=== PATIENT | female | born 1965 | race Caucasian/White ===

== ENCOUNTER → 2019-10-26 08:53 | Outpatient (CLI) | payer BC, SELFPAY ==
[2019-10-26 10:32] LABS: Hematocrit 40.8 % (37-47); Hemoglobin 12.9 g/dL (12.0-15.0); Mean Corp Hgb Conc 31.6 g/dL (32-36); Mean Corpuscular Hgb 27.8 pg (27.0-32.0); Mean Corpuscular Volume 87.9 fL (81-99); Mean Platelet Vol. 8.8 fl (6.2-12.0); Platelet Count 409 K/mm3 (150-450); RBC Distribution Width CV 12.7 % (11.6-14.6); RBC Distribution Width SD 40.9 fl (35.1-43.9); Red Blood Count 4.64 M/mm3 (4.2-5.4); White Blood Count 5.7 K/mm3 (4.4-11.0)
[2019-10-26 10:44] LABS: Erythrocyte Sedimentation Rate 32 mm/hr (0-30)
[2019-10-26 10:52] LABS: ALB/GLOB Ratio 0.8 RATIO (0.9-2.4); AST(SGOT) 28 U/L (15-37); Alanine Aminotransfer ALT/SGPT 30 U/L (13-56); Albumin, Serum 3.7 g/dL (3.2-5.0); Alkaline Phosphatase 64 U/L (45-117); Anion Gap 7 (5-15); BUN 13 mg/dL (7-18); BUN/Creat Ratio 13.3 RATIO (10-20); Calcium,Total 9.1 mg/dL (8.5-10.1); Chloride 100 mmol/L (98-107); Cholesterol 201 mg/dL (200); Creatinine, Serum 0.97 mg/dL (0.55-1.02); EST Glomerular Filtration Rate 63 mL/min (>60); Est Glom Filt Rate - Afr Amer 77 mL/min (>60); Globulin 4.8 g/dL (2.2-4.2); Glucose 108 mg/dL (74-106); High Density Lipoprotein 50 mg/dL; Magnesium 2.2 mg/dL (1.6-2.6); Potassium 3.5 mmol/L (3.5-5.1); Protein, Total 8.5 g/dL (6.4-8.2); Sodium Level 137 mmol/L (136-145); Triglycerides 196 mg/dL; Very Low Density Lipoprotein 39 mg/dL (5-40)
[2019-10-27 09:39] LABS: SAR-COV-2 IGG ANTIBODY Negative (Negative)
== END ==
PROVIDERS: PCP Family Medicine; Referring Provider Family Medicine; Visit Provider Family Medicine
DX: I10 Essential (primary) hypertension (principal); M43.6 Torticollis; Z20.828 Contact with and (suspected) exposure to other viral communicable diseases
CPT/HCPCS: 36415; 80053; 80061; 83735; 84443; 85027; 85652; 86769; G2023

== ENCOUNTER → 2020-02-08 16:17 | Outpatient (CLI) | payer BC, SELFPAY ==
[2020-02-08 17:51] LABS: Anion Gap 8 (5-15); BUN 14 mg/dL (7-18); BUN/Creat Ratio 15.1 RATIO (10-20); Calcium,Total 9.1 mg/dL (8.5-10.1); Chloride 101 mmol/L (98-107); Creatinine, Serum 0.93 mg/dL (0.55-1.02); EST Glomerular Filtration Rate 67 mL/min (>60); Est Glom Filt Rate - Afr Amer 81 mL/min (>60); Glucose 95 mg/dL (74-106); Potassium 3.6 mmol/L (3.5-5.1); Sodium Level 138 mmol/L (136-145)
== END ==
PROVIDERS: PCP Family Medicine; Referring Provider Family Medicine; Visit Provider Family Medicine
DX: I10 Essential (primary) hypertension (principal)
CPT/HCPCS: 36415; 80048

== ENCOUNTER → 2020-12-01 12:25 | Outpatient (CLI) | payer BC, SELFPAY ==
--- NOTE | 2020-12-01 12:40 | MRI_ITS ---
STUDY: MRI BRAIN WITHOUT CONTRAST REASON FOR EXAM: Female, 55 years old. RT ASYMMETRIC HEARING LOSS -- patient refused contrast TECHNIQUE: Standardized multiplanar fat and water weighted pulse sequences were obtained. COMPARISON: None. FINDINGS: Normal size of the ventricles and extra-axial spaces for the patient''s age. Normal white matter tracts of the supratentorial brain. There is no evidence for recent intracranial ischemia or other cause of cytotoxic edema on diffusion weighted imaging (DWI). Thin section axial and coronal images through the internal auditory canals demonstrate no evidence of mass to suggest vestibular schwannoma (acoustic neuroma). Normal bilateral basal ganglia. Normal thalami. There is no extra-axial fluid accumulation. Normal flow voids within the major intracranial circulation suggesting patency by spin echo criteria. Normal sella turcica, pituitary gland, infundibular stalk, optic chiasm and hypothalamus. Normal tectal plate and pineal gland. Normal midbrain, magno and medulla. Normal cerebellum. Normal basal cisterns. Normal bilateral temporal bones. Normal bilateral internal auditory canals. No demonstrated orbital abnormality, within the constraints of a routine brain study. Normal visualized paranasal sinuses. Normal calvarium and skull base. Normal visualized soft tissue structures. Normal visualized upper cervical spine. MRI/Brain without Contrast IMPRESSION: Normal unenhanced MRI of the brain. Electronically Signed: Sean Rice MD at 9:10 EDT Tel , Service support ,
== END ==
PROVIDERS: PCP Family Medicine; Referring Provider Otolaryngology; Visit Provider Otolaryngology
DX: H90.3 Sensorineural hearing loss, bilateral (principal)
CPT/HCPCS: 70551

== ENCOUNTER 2021-09-10 09:57 | Outpatient (CLI) | payer BC, SELFPAY ==
[2021-09-10 12:36] LABS: Anion Gap 6 (5-15); BUN 21 mg/dL (7-18); BUN/Creat Ratio 22.4 RATIO (10-20); Chloride 105 mmol/L (98-107); Cholesterol 170 mg/dL (200); Creatinine, Serum 0.94 mg/dL (0.55-1.02); EST Glomerular Filtration Rate 66 mL/min (>60); Est Glom Filt Rate - Afr Amer 80 mL/min (>60); Glucose 92 mg/dL (74-106); High Density Lipoprotein 56 mg/dL; Sodium Level 138 mmol/L (136-145); Triglycerides 149 mg/dL; Very Low Density Lipoprotein 30 mg/dL (5-40)
[2021-09-10 12:41] LABS: Microalbumin:Creatinine Ratio 13.5 mg/g CRE (<30 mg/g CRE)
== END 2021-09-10 23:59 | disposition home or self-care (01) ==
LOC: MFPLAB 09:58
PROVIDERS: PCP Family Medicine; Visit Provider Family Medicine
DX: I10 Essential (primary) hypertension (principal)
CPT/HCPCS: 36415; 80048; 80061; 82043; 82570

== ENCOUNTER → 2022-01-23 | Outpatient (CLI) | payer BC, SELFPAY ==
[2022-02-03 15:56] LABS: HPV APTIMA, High Risk Negative (Negative); HPV Reflexed? NOT INDICATED
== END | disposition home or self-care (01) ==
LOC: WOBLAB 16:00
PROVIDERS: PCP Family Medicine; Visit Provider Nurse Practitioner Family
DX: Z12.4 Encounter for screening for malignant neoplasm of cervix (principal)
CPT/HCPCS: 88175; G0145

== ENCOUNTER → 2022-10-14 | Outpatient (CLI) | payer BC, SELFPAY ==
--- NOTE | 2022-10-14 15:15 | US_ITS ---
ACR Level 3 findings have been noted. An addendum which confirms receipt of the report will follow. INDICATION: post menopausal bleeding EXAMINATION: Ultrasound US Pelvis Non OB Complete With Transvaginal Imaging TECHNIQUE: Transabdominal and transvaginal pelvic ultrasound was performed. Grayscale and color flow Doppler evaluation of the adnexa. COMPARISON: None. FINDINGS: UTERUS: Anteverted. The uterus measures 8.4 x 5.4 x 3.8 cm. There is no uterine mass. The endometrial stripe measures 7 mm with heterogeneous bolus appearance at the uterine fundus, abruptly narrowing to 5 mm at the mid body level. Multiple anechoic cervical nabothian cysts. RIGHT OVARY: 2.9 x 1.6 x 1.6 cm on transabdominal exam only, with 1.9 cm unilocular anechoic cyst.. LEFT OVARY: Not seen on transabdominal or endovaginal exam. FREE FLUID: None. OTHER: Bladder is anechoic without wall thickening or internal debris. Prevoid volume 361 ml. US/Pelvic w/ Transvaginal IMPRESSION: Abnormal morphology of the 7 mm endometrial stripe at the uterine fundus. In a postmenopausal female with bleeding would include endometrial carcinoma or hyperplasia in the differential in addition to polyp and submucosal fibroid. Consider endometrial tissue sampling for histopathologic diagnosis. Right ovary 1.9 cm simple appearing cyst. In a postmenopausal female 1 year ultrasound follow-up is recommended. Study limited by nonvisualization of the left ovary on transabdominal and endovaginal exam. Electronically Signed: Andrzej Arechiga MD at 10:44 EDT ,
== END | disposition home or self-care (01) ==
PROVIDERS: PCP Family Medicine; Referring Provider Family Medicine; Visit Provider Family Medicine
DX: N93.9 Abnormal uterine and vaginal bleeding, unspecified (principal)
CPT/HCPCS: 76830; 76856

== ENCOUNTER → 2022-11-01 | Outpatient (CLI) | payer BC, SELFPAY ==
--- NOTE | 2022-11-01 | EMB_PTH ---
PATIENT: MANJINDER MORA LOC: [facility] U#:[id number] AGE/SX: 57/F ROOM: RE11/01/[address]: Antoinette Vazquez CNM : 1965 BED: DIS: 11/01/2022 SPEC #: [id number] RECD: 11/01/22 15:00 STATUS: FRANCIS REIrais #: [id number] BRISA: 11/01/22 00:[address]: Antoinette Vazquez DEPT: SURGICAL PATHOLOGY RECD BY: Karie Taylor ENTERED: 11/04/22 05:38 SP TYPE: ENDOM BX/C STEFANO DR: Dr. Virgilio Garcia MD Tissues: Endometrium, NOS Procedures: Surgery Specimen Level IV HEADER OPERATION: Endometrial biopsy PRE-OP DIAGNOSIS: Abnormal uterine bleeding TISSUE SUBMITTED: Endometrial lining MICROSCOPIC DIAGNOSIS Endometrial biopsy: Scant fragments of benign superficial endometrial tissue, benign endocervical epithelium and mucous. See comment. SJ:aliyah 11/04/2022 COMMENT Minimal specimen is submitted. Clinical correlation and appropriate follow up are necessary. MICROSCOPIC DESCRIPTION Slides are reviewed. GROSS DESCRIPTION Received is one container labeled with the patient's name and not further designated. The specimen consists of multiple irregular fragments of mucoid tissue that in aggregate measure 1.5 x 0.2 x <0.1 cm. The specimen is totally submitted in one cassette. / JESÚS:aliyah 11/01/2022 TC:4 CPT: 72691
== END | disposition home or self-care (01) ==
LOC: LABSPEC 14:04
PROVIDERS: PCP Family Medicine; Visit Provider Registered Nurse
DX: N93.9 Abnormal uterine and vaginal bleeding, unspecified (principal)
CPT/HCPCS: 88305

== ENCOUNTER → 2023-05-07 | Outpatient (CLI) | payer OTHER, SELFPAY ==
[2023-05-07 17:43] LABS: Bacteria 0 SEEN /hpf (None Seen); Mucous, Urine 0 SEEN /hpf (<or=2+); Squamous Epithelial Cells - UA 0 SEEN /hpf (5-10)
[2023-05-07 17:47] LABS: Color, Urine Yellow (Yellow); Glucose, Dipstick Normal (Normal); Ketone-Dipstick Negative (Negative); Leukocyte Esterase-Dipstick 500 /ul (Negative); Nitrite-Dipstick Negative (Negative); Occult Blood-Urine 50 /ul (Negative); Protein-Dipstick Negative (Negative); Urine Bilirubin Dipstick Negative (Negative); Urine Clarity Clear (Clear); Urine Urobilinogen Normal (Normal)
[2023-05-07 18:02] LABS: Red Blood Cells-Urine 0-5 SEEN /hpf (0-5); White Blood Cells 0-5 SEEN /hpf (0-5)
== END | disposition home or self-care (01) ==
PROVIDERS: PCP Family Medicine; Visit Provider Family Medicine
DX: R31.29 Other microscopic hematuria (principal)
CPT/HCPCS: 81001; 87086; 87088

== ENCOUNTER → 2023-06-09 | Outpatient (CLI) | payer OTHER, SELFPAY ==
--- OUTSIDE RECORDS SUMMARY | 2023-06-09 08:21 | XMS RPT_ITS | CCD ---
Author Name Unknown Address [address] [place] [address] Organization [facility] Care Team Providers Care Agricultural Equipment Salesperson Name Role Phone Virgilio Garcia MD Primary Care Provider Allergies Allergy Classification Reported Allergen(s) Allergy Type Date of Onset Reaction(s) Facility (3 sources) Amoxicillin Drug Allergy 08-06-2006 Rash [facility] Work Phone: (3 sources) [place] Food Allergy 07-12-2014 [facility] Medications Completed/Discontinued Medications Medication Drug Class(es) Dates Sig (Normalized) Sig (Original) calcium carbonate 1500 mg / cholecalciferol 200 unt oral tablet (3 sources) Vitamin D Start: 09-08-2009 calcium carbonate/vitamin d3(CALCIUM 600 + D(3) 600 MG (1,500)-200 UNIT TAB) Take one(1) tablet twice daily. 0 09/08/2009 Active Results Test Name Value Interpretation Reference Range Facil ity Encounters Encounter Date Encounter Type Care Provider Facility Start: 09-26-2021 Telephone encounter Tena martinez RN Work Phone: Hematology/Oncology Procedures Date Procedure Procedure Detail Performing Clinician Start: 01-07-2019 Mammography Joanna pablo RN Work Phone: Plan of Treatment Date Care Activity Detail Author Start: 01-08-2024 HPV TESTING HPV TESTING [facility] Start: 01-08-2024 PAP TESTING PAP TESTING [facility] Start: 01-24-2022 Influenza vaccination INFLUENZA (Sea son Ended) [facility] Start: 01-08-2020 Mammography MAMMOGRAM [facility] Start: 09-09-2019 Urine microalbumin profile DTA P,TDAP,TD (2 - Td or Tdap) [facility] Start: 07-12-2019 LIPID SCREEN LIPID SCREEN [facility] Start: 07-12-2017 DIABETES SCREEN DIABETES SCREEN [facility] Start: 2016 SHINGRIX VACCINE (1 of 2) SHINGRIX V ACCINE (1 of 2) [facility] Start: 2011 COLOGUARD (FIT-DNA) COLOGUARD (FIT-D NA) [facility] Start: 2011 Colonoscopy COLONOSCOPY [facility] Start: 2011 COLORECTAL CANCER SCREENING COLORECTAL CANCER SCREENING [facility] Start: [address] COLONOGRAPHY [facility] Start: 2011 FECAL OCCULT BLOOD FECAL OCCULT BLOO D [facility] Start: 2011 SIGMOIDOSCOPY SIGMOIDOSCOPY [facility] Start: 1984 HEPATITIS C SCREENING HEPATITIS C SC REENING [facility] Start: 1984 HIV SCREENING HIV SCREENING [facility] Start: 1978 Adult depression scr eening assessment DEPRESSION SCREENING [facility] Start: 1971 COVID-19 VACCINE (1) COVID-19 VACCIN E (1) [facility] Immunizations Immunization Date Immunization Notes Care Provider Fa anam 09-08-2009 tetanus toxoid, redu trupti diphtheria toxoid, and acellular pertussis vaccine, adsorbed Joanna Ceron RN Work Phone: [facility] Payers Date Payer Category Payer Unknown [employer] BL[employer] CARD PPO OOS [id number] 2017-Present [phone] [facility] [id number] [place] [address] PPO [id number] Social History Date Type Detail Facility Tobacco smoking stat us PRIS Never smoked tobacco [facility] Work Phone: Start: 01-07-2019 Alcohol intake Current drinke r of alcohol (finding) [facility] Start: 07-12-2014 History SDOH Alcohol Comment rare [facility] Start: 1965 Sex Assigned At Not on file [facility] Start: 09-07-2021 End: 09-17-2021 Exposure to SARS-CoV-2 (event) Not sure [facility] Work Phone: Note 09-26-2021 Telephone Encounter - Tena Garvin RN - 09/26/2021 4:33 PM EDT Note Date & Type Note Facility 09-26-2021 Miscellaneous Notes Spoke with Joanna about her haplo match to her brother. She is aware that a donor has not been selected yet and she had some questions about the collection of cells. She was informed of the 2 ways that cells can be collected and if she would like to review more information, [employer] would be a good website for her to review. She verbalized understanding and will call if she has further questions. Tena Garvin RN documented in this encounter [facility] Note 09-25-2021 Telephone Encounter - Joanna Ceron RN - 09/25/2021 10:57 AM EDT Note Date & Type Note Facility 09-25-2021 Miscellaneous Notes Joanna Davila was notified she is a haploidentical HLA match to potential [employer] recipient, Connor Freida. Joanna Davila gave verbal consent to disclose HLA test results to Connor Guan. Joanna Davila was encouraged to call with any further questions or concerns and verbalized understanding. Joanna Ceron RN documented in this encounter [facility] Note 09-25-2021 Telephone Encounter - Joanna Ceron RN - 09/25/2021 10:54 AM EDT Note Date & Type Note Facility 09-25-2021 Miscellaneous Notes Called patient to discuss tissue typing results. She did not answer. Left message with contact information for her to return call. Joanna Ceron RN documented in this encounter [facility] Summary Purpose Family History No Family History Records Found Advance Directives No Advanced Directives Records Found Additional Source Comments Source Comments (unrecognize d section and content) In the event this informatio n is protected by the Federal Confidentiality of Alcohol and Drug Abuse Patient Records regulations: The Federal rules restrict any use of the information to criminally investigate or prosecute any alcohol or drug abuse patient.[facility] the event this information is protected by the Federal Confidentiality of Alcohol and Drug Abuse Patient Records regulations: The Federal rules restrict any use of the information to criminally investigate or prosecute any alcohol or drug abuse patient.[facility] Reason for Visit (unrecogniz ed section and content) Reason Comments Results Tissue Typing Care Teams (unrecognized sec tion and content) INFORMATION SOURCE (unrecogn ized section and content) FOR RECORDS PERTAINING TO PATIENTS WHO ARE OR HAVE BEEN ENROLLED IN A CHEMICAL DEPENDENCY/SUBSTANCEABUSE PROGRAM, SOME INFORMATION MAY BE OMITTED. This clinical summary was aggregated from multiple sources. Caution should be exercised in using it in the provision of clinical care. This summary normalizes information from multiple sources, and as a consequence, information in this document may materially change the coding, format and clinical context of patient data. In addition, data may be omitted in some cases. CLINICAL DECISIONS SHOULD BE BASED ON THE PRIMARY CLINICAL RECORDS. [employer] [facility]. provides no warranty or guarantee of the accuracy or completeness of information in this document.
[2023-06-09 12:02] LABS: Anion Gap 7 (5-15); BUN 24 mg/dL (7-18); BUN/Creat Ratio 25.7 RATIO (10-20); Calcium,Total 9.8 mg/dL (8.5-10.1); Chloride 105 mmol/L (98-107); Cholesterol 228 mg/dL (200); Creatinine, Serum 0.94 mg/dL (0.55-1.02); EST Glomerular Filtration Rate 66 mL/min (>60); Est Glom Filt Rate - Afr Amer 79 mL/min (>60); Glucose 94 mg/dL (74-106); High Density Lipoprotein 66 mg/dL; Potassium 4.4 mmol/L (3.5-5.1); Sodium Level 140 mmol/L (136-145); Thyroid Stim Hormone (TSH) 1.76 uIU/mL (0.358-3.74); Triglycerides 96 mg/dL; Very Low Density Lipoprotein 19 mg/dL (5-40)
== END | disposition home or self-care (01) ==
LOC: MFPLAB 08:15
PROVIDERS: PCP Family Medicine; Visit Provider Family Medicine
DX: Z13.29 Encounter for screening for other suspected endocrine disorder (principal); Z13.220 Encounter for screening for lipoid disorders; Z13.1 Encounter for screening for diabetes mellitus
CPT/HCPCS: 36415; 80048; 80061; 84443